=== PATIENT | female | born 1955 | race Caucasian/White ===

== ENCOUNTER → 2023-10-28 15:28 | Outpatient (REF) | payer OTHER, SELFPAY | LOC: RCS 15:28 | PROVIDERS: ATTENDING PHYSICIAN Internal Medicine Cardiovascular Disease; FAMILY PHYSICIAN Student in an Organized Health Care Education/Training Program | DX: I35.0 Nonrheumatic aortic (valve) stenosis (principal) | CPT/HCPCS: 93306 ==

== ENCOUNTER → 2023-12-10 08:41 | Outpatient (REF) | payer OTHER, SELFPAY | LOC: HWRAD 08:41 | PROVIDERS: ATTENDING PHYSICIAN Family Medicine | DX: M85.89 Other specified disorders of bone density and structure, multiple sites (principal); K76.0 Fatty (change of) liver, not elsewhere classified | CPT/HCPCS: 77080 ==

== ENCOUNTER → 2023-12-23 06:52 | Outpatient (REF) | payer OTHER, SELFPAY | LOC: HWRAD 06:52 | PROVIDERS: ATTENDING PHYSICIAN Internal Medicine Gastroenterology; FAMILY PHYSICIAN Family Medicine | DX: K76.0 Fatty (change of) liver, not elsewhere classified (principal) | CPT/HCPCS: 76700 ==

== ENCOUNTER → 2024-01-25 06:31 | Day surgery (SDC) | payer OTHER, SELFPAY | LOC: GI 06:31 | PROVIDERS: ATTENDING PHYSICIAN Internal Medicine Gastroenterology | DX: K57.30 Diverticulosis of large intestine without perforation or abscess without bleeding (principal); K64.4 Residual hemorrhoidal skin tags; K64.8 Other hemorrhoids; K29.50 Unspecified chronic gastritis without bleeding; K44.9 Diaphragmatic hernia without obstruction or gangrene; K31.7 Polyp of stomach and duodenum; K31.89 Other diseases of stomach and duodenum; Z86.010 Personal history of colon polyps; Z87.19 Personal history of other diseases of the digestive system; Z09 Encounter for follow-up examination after completed treatment for conditions other than malignant neoplasm | CPT/HCPCS: 45378; 43239; 88305; 88342 ==

== ENCOUNTER 2024-10-01 15:01 | Emergency (ER) | payer OTHER, SELFPAY ==
[2024-10-01] VITALS (11 sets, daily range): BP systolic 117–222; BP diastolic 66–95; BMI 30.9
--- NOTE | 2024-10-01 15:31 | ED.GENMED ---
History of Present Illness
General
Chief Complaint: Fall
Source: patient
Exam Limitations: none
Time Seen by Provider: 10/01/24 15:13
Nursing documentation reviewed up to this point in time: agreed with
History of Present Illness
History of Present Illness:
69-year-old female with a past medical history as noted presents to the ER for evaluation after a trip and fall. Patient was walking in the parking lot and tripped on a cement parking block. She fell forward injured her left wrist, left shoulder.
She scraped her right knee. She did have head trauma but no loss of consciousness. She mainly complains of pain in the left wrist and right shoulder. Denies any headache or neck pain. Denies any back pain. Denies any rib or abdominal pain. She
is on Coumadin.
Past History
Past History
ED Past Medical History: CAD, HTN, Valvular disease () and Other (anemia)
ED Past Surgical History: Appendectomy, Cardiac (AVR) and Gynecological (OBDULIA)
Social History
Tobacco: Non-smoker
Alcohol: None
Drug: None
Personal:
Living: with family
Employment: Employed
Family History
Family History: Other (Nonsignificant)
Review of Systems
Review of Systems
All Other Systems: ROS reviewed and negative except as documented in HPI and ROS
Respiratory: Denies trouble breathing
Cardiac: Denies chest pain
ABD/GI: Denies abdominal pain, nausea or vomiting
Musculoskeletal: Reports joint pain; Denies neck pain or back pain
Neurological: Denies dizzy or headache
Phy Exam
Physical Exam
Physical Exam:
General: Awake, alert, oriented x3; anxious appearing but nontoxic
Head: Normocephalic, atraumatic
Eyes: Conjunctiva normal, pupils equal round and reactive to light bilaterally
Throat: Airway intact, handling secretions
Neck: Trachea midline, no cervical spine tenderness
Back: No signs of trauma to the back or flank
Lungs: Breathing comfortably not in distress
Heart: Regular rate; no chest wall tenderness
Abd: Soft, non distended, nontender
Neuro: Cranial nerves grossly intact, speech fluid; motor and sensory intact radial, median, ulnar nerve distribution in the upper extremities bilaterally
Skin: Abrasion to the right
Extremities: See below--
LUE-patient has deformity to left wrist with bruising and swelling, tenderness over the distal radius/ulna; strong palpable left radial pulse; no tenderness in the left elbow and allows for range of motion of the left elbow without pain, no
tenderness in the left shoulder and allows for range of motion without pain
RUE-patient unable to move right shoulder due to severe pain; she has minor deformity with humeral head appearing to lie inferior to the glenoid; she has no tenderness of the elbow and allows for range of motion of the elbow without pain, no
tenderness of the wrist, strong right radial pulse
LLE-Atraumatic, non tender
RLE-minor abrasion to the knee but no joint effusion or swelling, no bruising, full range of motion in the, otherwise atraumatic
Scores
Heart Failure Risk
Heart Failure Risk Score: Not Applicable
Heart Score for Chest Pain Patients
STEMI patient?: Not applicable
Withdrawal Assessment of Alcohol
Withdrawal Assessment Completed?: Not applicable
Course
Orders/Labs/Results
Orders:
Orders
10/01/24 15:29
CT Head W/o Iv Contrast Urgent
Comment:
Reason For Exam: fall on coumadin
CR Shoulder - Right Min 2 View Urgent
Comment:
Reason For Exam: right shoulder injury
CR Wrist - Left Min 3 Views Urgent
Comment:
Reason For Exam: left wrist injury
10/01/24 15:30
CT Cervical Spine W/o Iv Contr Urgent
Comment:
Reason For Exam: fall on coumadin
Morphine Sulfate 4 mg IV NOW STA
Ondansetron Injectable [Zofran] 4 mg IV NOW STA
10/01/24 16:27
Complete Blood Count/With Diff Urgent
Comprehensive Metabolic Panel Urgent
PTT Urgent
Prothrombin Time Urgent
10/01/24 18:37
Propofol [Diprivan] 20 ml .ROUTE .STK-MED
10/01/24 18:42
Propofol [Diprivan] 20 ml .ROUTE .STK-MED
10/01/24 18:54
Wrist, Left 3 Views CR [CR Wrist - Left Min 3 Views] Urgent
Comment:
Reason For Exam: post reduction
Abnormal Lab Results
10/01/24
16:27
WBC 11.9 H 10^3/uL
(4.8-10.8)
Abs Immat Gran (auto) 0.1 H 10^3/uL
(0-0.05)
Absolute Neuts (auto) 10.1 H 10^3/uL
(1.4-6.5)
Absolute Lymphs (auto) 0.9 L 10^3/uL
(1.2-3.4)
Absolute Monos (auto) 0.7 H 10^3/uL
(0.1-0.6)
Neutrophils % 84.7 H %
(42.2-75.2)
Lymphocytes % 7.2 L %
(20.5-51.1)
PT 24.3 H Sec
(11.4-14.6)
APTT 37.9 H Sec
(23.4-35.0)
Creatinine 1.1 H mg/dL
(0.6-1.0)
Glucose 118 H mg/dl
(70-99)
10/01/24 16:27
10/01/24 16:27
Vital Signs
Initial and Last Documented VS:
Initial Vital Signs
Temp Pulse Resp BP Pulse Ox
36.4 C 98 16 222/95 98
10/01/24 15:04 10/01/24 15:04 10/01/24 15:04 10/01/24 15:04 10/01/24 15:04
Last Documented Vital Signs
Temp Pulse Resp BP Pulse Ox
36.4 C 95 16 131/68 96
10/01/24 19:37 10/01/24 19:37 10/01/24 19:37 10/01/24 19:37 10/01/24 19:37
Procedures
Moderate Sedation
ASA Risk Score: Class III
Chart and allergies reviewed: Yes
Consent for anesthesia obtained: Yes
Time out completed (validating right patient & procedure): Yes
Moderate Sedation Start Time(when first medication is given): 18:45
History of difficult intubation: No
Airway free of obstruction: Yes
Patient has a gag reflex: Yes
Patient is able to open mouth: Yes
Patient has no dentures: Yes
Patient has no loose teeth: Yes
Medication administered by Provider during Moderate Sedation: IV Propofol (mg)
Total dose administered: 50
Time drug administered: 18:45
Moderate Sedation Procedure End Time: 19:00
Splinting/Sling Placement
Left Arm:
Procedure completed by: Rick Mckay MD
Pre-splint extermity exam: neurovascular intact
Type of splint: sugar-tong
Splint material: fiberglass
Type of sling: sling fitted
Normal distal neurovascular exam?: Yes
Right Arm:
Procedure completed by: Rick Mckay MD
Pre-splint extermity exam: neurovascular intact
Type of splint: other (arm sling)
Type of sling: sling fitted
Normal distal neurovascular exam?: Yes
Joint/Fracture Reduction
Left Wrist:
Indication for procedure:: distal radius fracture
Procedure completed by: Rick Mckay MD
Consent form signed: Yes
Anesthesia/sedation: Moderate sedation
Injury was: closed
Further treatement: no treatment needed
Post reduction exam: stable
Capillary Refill: normal
Normal distal neurovascular exam?: Yes
Peripheral Pulses: radial (left): 2+
MDM/Problems Addressed
Differential Diagnosis Includes:
Shoulder injury: Dislocation, fracture, contusion
Wrist injury: Fracture, contusion, sprain
MDM/Problems Addressed:
69-year-old female on Coumadin presents after a fall. Injured her left wrist and shoulder. There was a head strike but no LOC. Check x-ray of the left wrist and right shoulder. Check CT of the head and cervical spine. Check labs and INR. Treat
pain. Reassess after the above.
Labs reviewed and no clinically significant abnormalities. INR therapeutic. X-ray of the wrist shows comminuted and dorsally angulated distal radius fracture as well as a distal ulnar fracture. X-ray of the shoulder shows essentially nondisplaced
proximal humerus fracture. CT head and cervical spine negative for any acute posttraumatic pathology. Will plan to reduce and splint her wrist fracture. Will place in a sling for right shoulder. I had a long discussion with this patient�this is
a very unfortunate injury pattern that would require essentially bilateral arm slings and make it very difficult to use either arm. I explained that admission and rehab placement would be a prudent course of action so that she can have assistance
in her daily activities. Patient and however feel that she can manage at home with her degree of support. She wishes to at least try going home with support from her family and will return if she feels she cannot manage. Discussed with
orthopedics they can follow-up with her in the office.
Fracture reduced under moderate sedation as documented in procedure note. Reasonable alignment on postreduction x-ray. Placed in a splint by me and placed in bilateral slings. Will monitor after sedation, patient still wishes to go home as above.
Chronic conditions affecting care:
Heart disease on Coumadin impacts fall/trauma
Acute Exacerbation and/or Progression of Chronic Illness:
Acutely hypertensive likely pain related�treat pain
Acute Exacerbation and/or Progression of Chronic Illness: HTN
*Radiology
Radiology exam reviewed: preliminary read by ED provider and radiology read reviewed
*Pulse Oximetry
Patient hypoxic: no
*Critical Care Note
Total Time (30-74mins, 75-104mins- exclusive of procedures): Not Applicable
Data Reviewed
Review of Other/Old Records Reveals: Labs and Records
Source: patient and family
Patient Management
Social determinants of health affecting care: Strong social support
Discussion with other providers: [employer] (Discussed with orthopedist)
Escalation/DeEscalation of care consider admission/obs:
Recommended admission and rehab placement but patient wishes to go home with family support
ED Attending Note
-
Portions of this chart may have been created with voice recognition software.� Occasional wrong word or��sound alike� substitutions may have occurred due to the inherent limitations of voice recognition software.
Discharge Plan
Departure
Patient Disposition: Home (Routine Discharge)
Date of Disposition: 10/01/24
Time of Disposition: 19:17
Patient with high blood pressure during this ER visit?: Yes
Discharge Problem:
Fracture, humerus, Fracture, radius, Hypertension
Instructions: Wrist fracture, Shoulder or upper arm fracture, BLOOD PRESSURE
Prescriptions:
New
oxycodone 5 mg tablet
5 mg PO TID PRN (Reason: Pain) Qty: 20 0RF
No Action
aspirin 81 MG tablet,delayed release (DR/EC)
81 mg PO QPM
pantoprazole 40 MG tablet,delayed release (DR/EC)
40 mg PO DAILY Qty: 30 11RF
atorvastatin 40 MG tablet
20 mg PO DAILY
warfarin [Jantoven] 2.5 MG tablet
2.5 mg PO QPM Qty: 90 3RF
Rx Instructions:
Take nothing day of discharge 04/04, Then one tablet (2.5mg) daily or as directed for a target INT of 2.5-3.5
losartan 50 MG tablet
50 mg PO DAILY
verapamil 240 MG tablet extended release
240 mg PO DAILY
polyethylene glycol 3350 17 GRAMS powder in packet
17 grams PO DAILY 7 Days Qty: 7 0RF
sennosides-docusate sodium 1 TABLET tablet
1 tab PO BIDPRN PRN (Reason: constipation) 7 Days Qty: 14 0RF
metronidazole 500 MG tablet
500 mg PO TID 5 Days Qty: 15 0RF
levofloxacin 500 MG tablet
500 mg PO Q24H 5 Days Qty: 5 0RF
Referrals:
James Zavala MD [Active] - Call in 1-3 days for appt (Orthopedist)
Elke May MD [Family Provider] -
Activity Restrictions/Additional Instructions:
Thank you for visiting the Emergency Department at [facility].
1. Please schedule a follow up appointment as directed. Call first thing tomorrow morning to make an appointment.
2. If indicated, please take your medications as instructed and indicated on discharge paperwork.
3. If any of your symptoms do not improve, or persist, or become more severe within 6-12 hours, please return to the emergency department for further care.
4. Please return to the emergency department if you develop a headache, neck pain/stiffness, fever greater than 100.4F, chest pain, shortness of breath, persistent nausea, vomiting, slurred speech, difficulty walking, numbness/tingling, weakness,
signs of infection or any other symptoms that are worrisome to you.
Please call [phone] if you have any questions.
Interventions
Interventions:
*Risk Screen - Suicide Last Done: 10/01/24 15:04
*General Assessment Last Done: 10/01/24 16:20
*Neglect/Abuse Screening Last Done: 10/01/24 15:04
*ED- Fall Risk Assessment Last Done: 10/01/24 16:20
*ED COVID-19 Vaccine History Last Done: 10/01/24 16:20
*Nursing Disposition Last Done: 10/01/24 19:37
Discharge Date and Time
Print Language: COMORAN
[2024-10-01] MEDS: ZOFRAN 4 MG IV (16:28)
[2024-10-01] MEDS: MORPHINE SULFATE 4 MG IV (16:28)
[2024-10-01 16:45] LABS: % Basophils 0.6 % (0-2); % Eosinophils 1.4 % (0-6); % Immature Granulocytes 0.5 % (0-0.5); % Lymphocytes 7.2 % (20.5-51.1); % Monocytes 5.6 % (1.7-9.3); % Neutrophils 84.7 % (42.2-75.2); Absolute Basophils 0.1 10^3/uL (0-0.2); Absolute Eosinophils 0.2 10^3/uL (0-0.7); Absolute Immature Granulocytes 0.1 10^3/uL (0-0.05); Absolute Lymphocytes 0.9 10^3/uL (1.2-3.4); Absolute Monocytes 0.7 10^3/uL (0.1-0.6); Absolute Neutrophils 10.1 10^3/uL (1.4-6.5); Hematocrit 41.3 % (37.0-47.0); Hemoglobin 13.9 g/dL (12.0-16.0); Mean Corp Hgb Conc. 33.7 g/dL (33.0-37.0); Nucleated Red Blood Cells % 0 %; Platelet Count 303 10^3/uL (130-400); Red Cell Dist. Width 13.3 % (11.5-14.5); White Blood Cell Count 11.9 10^3/uL (4.8-10.8)
[2024-10-01 16:55] LABS: INR 2.18; PT 24.3 Sec (11.4-14.6)
[2024-10-01 16:56] LABS: APTT 37.9 Sec (23.4-35.0)
[2024-10-01 16:57] LABS: ALT (SGPT) 23 U/L (0-35); AST (SGOT) 27 U/L (14-36); Albumin 3.9 g/dl (3.5-5.0); Alkaline Phosphatase 105 U/L (38-126); Blood Urea Nitrogen 16 mg/dl (7-17); Calcium 9.7 mg/dl (8.4-10.2); Carbon Dioxide 29 mmol/L (22-30); Chloride 107 mmol/L (98-107); Glucose 118 mg/dl (70-99); Potassium 3.7 mmol/L (3.5-5.1); Sodium 143 mmol/L (135-145); Total Bilirubin 0.5 mg/dl (0.2-1.3); Total Protein 6.8 g/dl (6.3-8.2); eGFR 55.07
== END 2024-10-01 19:45 | disposition home or self-care (01) ==
LOC: EMR 15:01
PROVIDERS: EMERGENCY PHYSICIAN Emergency Medicine; FAMILY PHYSICIAN Family Medicine
DX: S52.591A Other fractures of lower end of right radius, initial encounter for closed fracture (principal); S52.92XA Unspecified fracture of left forearm, initial encounter for closed fracture; W01.10XA Fall on same level from slipping, tripping and stumbling with subsequent striking against unspecified object, initial encounter; Y92.481 Parking lot as the place of occurrence of the external cause; Y93.01 Activity, walking, marching and hiking; I25.10 Atherosclerotic heart disease of native coronary artery without angina pectoris; I10 Essential (primary) hypertension; I38 Endocarditis, valve unspecified; D64.9 Anemia, unspecified; Z79.01 Long term (current) use of anticoagulants; Z90.49 Acquired absence of other specified parts of digestive tract; Z90.710 Acquired absence of both cervix and uterus
CPT/HCPCS: 99284; 25605; 96374; 96375; 70450; 72125; 73030; 73110; 80053; 85025; 85610; 85730

== ENCOUNTER 2024-10-04 06:17 | Day surgery (SDC) | payer OTHER, SELFPAY ==
[2024-10-04] VITALS (14 sets, daily range): BP systolic 118–232; BP diastolic 55–101; BMI 30.4
[2024-10-04 12:05] LABS: Hemoglobin 12.7 g/dL (12.0-16.0)
[2024-10-04] MEDS: NORMOSOL-R/PLASMALYTE-A 1000 IV (12:08)
[2024-10-04] MEDS: CELEBREX 200 MG PO (12:09)
[2024-10-04] MEDS: ROXICODONE 5 MG PO (12:09)
[2024-10-04 12:12] LABS: INR 2.79; PT 29.4 Sec (11.4-14.6)
[2024-10-04 12:14] LABS: Blood Urea Nitrogen 10 mg/dl (7-17); Glucose 92 mg/dl (70-99)
[2024-10-04] MEDS: DILAUDID 0.5 MG IV (14:22)
[2024-10-04] MEDS: ZOFRAN 4 MG IV (14:22)
== END 2024-10-04 16:42 | disposition home or self-care (01) ==
LOC: SDS 06:17
PROVIDERS: Student in an Organized Health Care Education/Training Program; ATTENDING PHYSICIAN Orthopaedic Surgery Hand Surgery
DX: S52.572A Other intraarticular fracture of lower end of left radius, initial encounter for closed fracture (principal); S42.201A Unspecified fracture of upper end of right humerus, initial encounter for closed fracture; X58.XXXA Exposure to other specified factors, initial encounter; Z95.2 Presence of prosthetic heart valve; Z79.01 Long term (current) use of anticoagulants
CPT/HCPCS: 25609; 24505; 82947; 84520; 85018; 85610; 93005; C1713

== ENCOUNTER → 2024-10-28 09:28 | Outpatient (REF) | payer OTHER, SELFPAY ==
[2024-10-28 10:52] LABS: INR 2.16; PT 24.2 Sec (11.4-14.6)
== END ==
LOC: REG 09:28
PROVIDERS: ATTENDING PHYSICIAN Student in an Organized Health Care Education/Training Program
DX: Z95.2 Presence of prosthetic heart valve (principal)
CPT/HCPCS: 36415; 85610

== ENCOUNTER → 2024-11-16 09:52 | Outpatient (REF) | payer OTHER, SELFPAY ==
[2024-11-16 11:09] LABS: INR 1.68; PT 20.3 Sec (11.4-14.6)
== END ==
LOC: REG 09:52
PROVIDERS: ATTENDING PHYSICIAN Internal Medicine Cardiovascular Disease; FAMILY PHYSICIAN Family Medicine
DX: Z95.2 Presence of prosthetic heart valve (principal)
CPT/HCPCS: 36415; 85610

== ENCOUNTER 2025-01-08 18:07 | Emergency (ER) | payer OTHER, SELFPAY ==
[2025-01-08 18:12] VITALS: BP 150/103
[2025-01-08 18:30] LABS: Hematocrit 43.7 % (37.0-47.0); Hemoglobin 15.0 g/dL (12.0-16.0); Mean Corp Hgb Conc. 34.3 g/dL (33.0-37.0); Mean Corpuscular Volume 83.2 fL (81.0-99.0); Nucleated Red Blood Cells % 0 %; Platelet Count 262 10^3/uL (130-400); Red Cell Dist. Width 13.2 % (11.5-14.5)
[2025-01-08 18:53] LABS: ALT (SGPT) 29 U/L (0-35); AST (SGOT) 28 U/L (14-36); Albumin 4.3 g/dl (3.5-5.0); Alkaline Phosphatase 102 U/L (38-126); Blood Urea Nitrogen 8 mg/dl (7-17); Calcium 9.9 mg/dl (8.4-10.2); Carbon Dioxide 28 mmol/L (22-30); Chloride 106 mmol/L (98-107); Glucose 103 mg/dl (70-99); Potassium 3.2 mmol/L (3.5-5.1); Sodium 139 mmol/L (135-145); Total Protein 7.1 g/dl (6.3-8.2); eGFR > 60.00
[2025-01-08 19:25] VITALS: BMI 29.1
[2025-01-08 19:30] VITALS: BP 204/62
[2025-01-08 20:00] VITALS: BP 172/47
--- NOTE | 2025-01-08 20:04 | ED.GENMED ---
History of Present Illness
General
Chief Complaint: Blood Pressure Problem
Time Seen by Provider: 01/08/25 20:01
History of Present Illness
History of Present Illness:
TIME OF INITIAL EVALUATION
- 8:10 PM
REVIEW OF OLD RECORDS
- The patient has history of migraines, former smoker, aortic stenosis, coronary artery disease, and high blood. I reviewed records, the patient went to the OR for management of distal left radius fracture.
Note:
CHIEF COMPLAINT(S)
Elevated blood pressure readings with associated abdominal discomfort.
HISTORY OF PRESENT ILLNESS
The patient is a 69-year-old female presenting with concerns about fluctuating blood pressure readings. Her blood pressure this morning was recorded at 144/55 mmHg, with a peak of 208/74 mmHg around 5 PM. The patient is currently on Verapamil 240 mg
extended release taken in the evening and Losartan 50 mg taken each morning for hypertension management. She reports no associated chest pain or shortness of breath but describes some stomach discomfort. The patient mentions that recent blood work
did not indicate any alarming findings and that an electrocardiogram (EKG) conducted previously prompted a recommendation to return for follow-up. The patients elevated blood pressure readings vary considerably, described as labile hypertension.
The patient initially experienced issues related to a hand procedure necessitated by a severe wrist fracture, for which metal was implanted. The patient was informed by her surgeon that she may be allergic to the metal, impacting healing and
function. She was unable to bend her hand since September and finds this situation stressful, potentially exacerbating her blood pressure issues.
PHYSICAL EXAM
General: Alert, no acute distress. Patient is found to be hypertensive
Skin: Warm, dry.
Head: Normocephalic, atraumatic.
Neck: Supple, trachea midline.
Eye, Ears, Nose, Mouth and Throat: Oral mucosa moist.
Cardiovascular: Normal peripheral perfusion, no edema. Click heard on exam consistent with known mechanical aortic valve
Respiratory: Respirations are non-labored.
Gastrointestinal: Abdomen nondistended.
Back: Normal range of motion, normal alignment.
Musculoskeletal: Normal range of motion, normal strength.
Neurological: Alert and oriented to person, place, time, and situation, no focal neurological deficit observed.
Psychiatric: Cooperative, appropriate mood & affect.
PROBLEM LIST
Acute:
- Elevated and labile hypertension
- Abdominal discomfort
- Incomplete healing post wrist fracture
PLAN
1. Adjust hypertension management by increasing Losartan to 100 mg daily, taken as two 50 mg doses each morning.
2. Continue Verapamil 240 mg extended release in the evening.
3. Follow-up with cardiology for potential heart condition evaluation and consideration of imaging such as an echocardiogram due to suspicion of left ventricular hypertrophy.
4. Consideration of wrist metal allergy and implications for healing; remove metal if inhibiting recovery based on orthopedic evaluation.
5. Encourage continued follow-up with the loin puller and orthopedic surgeon to monitor blood pressure and healing progress.
DIFFERENTIAL DIAGNOSIS
The Differential Diagnosis includes, in no particular order and is not limited to:
- Essential hypertension
- Labile hypertension
- Medication-related hypertension
- Anxiety-induced hypertension
- Abdominal discomfort due to gastrointestinal causes
- Gastric ulcer
- Left ventricular hypertrophy
- Allergic reaction to implanted metal
- Incomplete fracture union
- Stress-related physiological responses
RADIOLOGY
- Not indicated
EKG
- Sinus 84, leftward axis deviation, LVH with associated ST abnormality
LABS
- CBC unremarkable, chemistries show potassium of 3.2
UPDATE
-SUMMARY OF ENCOUNTER
The patient, a 69-year-old female, was seen in the emergency department due to concerns of fluctuating blood pressure readings, with a significant rise to 208/74 mmHg. She experiences associated mild abdominal discomfort but denies chest pain or
shortness of breath. She currently takes Verapamil 240 mg extended release in the evening and Losartan 50 mg in the morning for her hypertension. Management in the emergency department included a plan to adjust her hypertension medication by
increasing Losartan to 100 mg daily, taken as two 50 mg doses each morning. Additionally, she will follow up with cardiology due to suspected left ventricular hypertrophy. Incidentally, her potassium level was noted to be low, prompting a decision
to administer an oral potassium replacement as a one-time dose.
DISPOSITION
Discharge
PLAN
Increase Losartan dosage to 100 mg daily, to be taken as two 50 mg doses each morning. Administer a one-time oral potassium replacement due to low potassium levels. Encourage the patient to follow up with cardiology for ongoing evaluation of her
heart condition.
INDEPENDENT REVIEW OF LABS AND INTERPRETATION OF TESTS
My independent review indicates low potassium levels, leading to the decision to administer oral potassium replacement.
MEDICATION RECONCILIATION
Losartan, adjusted to 100 mg daily taken as two 50 mg doses each morning.
Verapamil 240 mg extended release, to continue in the evening.
One-time oral potassium replacement administered in the emergency department.
MEDICAL DECISION MAKING
Chronic conditions affecting care: Elevated and labile hypertension, abdominal discomfort, incomplete healing post wrist fracture.
DDx: Essential hypertension, labile hypertension, medication-related hypertension, anxiety-induced hypertension, abdominal discomfort due to gastrointestinal causes, gastric ulcer, left ventricular hypertrophy, allergic reaction to implanted metal,
incomplete fracture union, stress-related physiological responses.
-Data:
Category 1
Reviewed blood pressure medication regimen; EKG indicating follow-up recommendation.
Category 3
Adjustment in management discussed with the patient regarding changes in Losartan dosing and follow-up with cardiology.
DIAGNOSIS
Labile Hypertension - ICD-10: I10
Hypokalemia - ICD-10: E87.6
Past History
Past History
ED Past Medical History: CAD, HTN, Valvular disease () and Other (anemia)
ED Past Surgical History: Appendectomy, Cardiac (AVR) and Gynecological (OBDULIA)
Social History
Tobacco: Non-smoker
Alcohol: None
Drug: None
Personal:
Living: with family
Employment: Employed
Family History
Family History: Other (Nonsignificant)
Phy Exam
Physical Exam
Physical Exam:
See HPI
Course
Orders/Labs/Results
Orders:
Orders
01/08/25 18:18
Complete Blood Count/With Diff Urgent
Comprehensive Metabolic Panel Urgent
01/08/25 19:31
EKG [Electrocardiogram (*1)] Urgent
Reason for Study: Hypertension, Benign
EKG- Treatment ONCE
01/08/25 20:29
Potassium Chloride Powder [Klor-Con] 40 meq PO NOW STA
Abnormal Lab Results
01/08/25
18:18
Absolute Neuts (auto) 6.6 H 10^3/uL
(1.4-6.5)
Absolute Monos (auto) 0.8 H 10^3/uL
(0.1-0.6)
Lymphocytes % 17.5 L %
(20.5-51.1)
Potassium 3.2 L mmol/L
(3.5-5.1)
Glucose 103 H mg/dl
(70-99)
01/08/25 18:18
01/08/25 18:18
Vital Signs
Initial and Last Documented VS:
Initial Vital Signs
Temp Pulse Resp BP Pulse Ox
36.6 C 97 16 150/103 97
01/08/25 18:12 01/08/25 18:12 01/08/25 18:12 01/08/25 18:12 01/08/25 18:12
Last Documented Vital Signs
Temp Pulse Resp BP Pulse Ox
36.6 C 79 21 172/47 91
01/08/25 18:12 01/08/25 20:00 01/08/25 20:00 01/08/25 20:00 01/08/25 20:05
*Pulse Oximetry
SaO2: 91
Oxygen Mode of Delivery: Room air
Patient hypoxic: no
*Critical Care Note
Total Time (30-74mins, 75-104mins- exclusive of procedures): Not Applicable
ED Attending Note
-
Portions of this chart may have been created with voice recognition software.� Occasional wrong word or��sound alike� substitutions may have occurred due to the inherent limitations of voice recognition software.
Discharge Plan
Departure
Patient Disposition: Home (Routine Discharge)
Date of Disposition: 01/08/25
Time of Disposition: 20:28
Patient with high blood pressure during this ER visit?: Yes
Discharge Problem:
Poor high blood pressure control
Instructions: High Blood Pressure (DC), BLOOD PRESSURE
Prescriptions:
No Action
aspirin 81 MG tablet,delayed release (DR/EC)
81 mg PO QPM
atorvastatin 40 MG tablet
20 mg PO DAILY
losartan 50 MG tablet
50 mg PO DAILY
verapamil 120 mg Tablet Extended Release
120 mg PO BID
warfarin 2.5 mg Tablet
3.75 mg PO MO
omeprazole 40 mg Capsule,Delayed Release(Dr/Ec)
40 mg PO DAILY
acetaminophen 500 mg Tablet
1,000 mg PO Q6H PRN (Reason: pain)
cholecalciferol (vitamin D3) [Vitamin D3] 50 mcg (2,000 unit) Capsule
50 mcg PO DAILY
Iron (ferrous sulfate) 28 mg
1 tab PO DAILY
warfarin [Jantoven] 2.5 MG tablet
2.5 mg PO SUTUWETHFRSA
Rx Instructions:
Take nothing day of discharge 04/04, Then one tablet (2.5mg) daily or as directed for a target INT of 2.5-3.5
Referrals:
Elke May MD [Family Provider, Family Practice]
Activity Restrictions/Additional Instructions:
Since your blood pressure has remained elevated despite doubling the verapamil, I recommend you also double the losartan 50 mg now to 2 pills at the same time each morning. Follow-up with your loin puller. Basic blood work is unremarkable with
exception of slightly low potassium. We gave you a dose of potassium tonight. Consider increasing potassium intake by taking foods high in potassium such as bananas or potatoes.
Interventions
Interventions:
*Risk Screen - Suicide Last Done: 01/08/25 18:14
*General Assessment Last Done: 01/08/25 19:25
*Neglect/Abuse Screening Last Done: 01/08/25 18:14
*ED- Fall Risk Assessment Last Done: 01/08/25 19:25
*ED COVID-19 Vaccine History Last Done: 01/08/25 19:25
ED- Cardiac Assessment Last Done: 01/08/25 19:25
ED- Neurological Assessment Last Done: 01/08/25 19:25
ED- Pulmonary Assessment Last Done: 01/08/25 19:25
Discharge Date and Time
Print Language: HUNGARIAN
[2025-01-08] MEDS: KLOR-CON 40 MEQ PO (20:38)
== END 2025-01-08 20:48 | disposition home or self-care (01) ==
LOC: EMR 18:07
PROVIDERS: EMERGENCY PHYSICIAN Emergency Medicine; FAMILY PHYSICIAN Family Medicine
DX: I10 Essential (primary) hypertension (principal); E87.6 Hypokalemia; I25.10 Atherosclerotic heart disease of native coronary artery without angina pectoris; I35.0 Nonrheumatic aortic (valve) stenosis; Z79.899 Other long term (current) drug therapy; Z90.49 Acquired absence of other specified parts of digestive tract; Z90.710 Acquired absence of both cervix and uterus
CPT/HCPCS: 99283; 80053; 85025; 93005

== ENCOUNTER → 2025-01-23 15:03 | Outpatient (REF) | payer OTHER, SELFPAY ==
[2025-01-23 15:37] LABS: INR 4.56; PT 43.2 Sec (11.4-14.6)
== END ==
LOC: REG 15:03
PROVIDERS: ATTENDING PHYSICIAN Student in an Organized Health Care Education/Training Program; FAMILY PHYSICIAN Family Medicine
DX: Z95.2 Presence of prosthetic heart valve (principal)
CPT/HCPCS: 36415; 85610

== ENCOUNTER → 2025-01-27 11:04 | Outpatient (REF) | payer OTHER, SELFPAY ==
[2025-01-27 13:01] LABS: INR 3.93; PT 38.1 Sec (11.4-14.6)
== END ==
LOC: REG 11:04
PROVIDERS: ATTENDING PHYSICIAN Student in an Organized Health Care Education/Training Program; FAMILY PHYSICIAN Family Medicine
DX: Z95.2 Presence of prosthetic heart valve (principal)
CPT/HCPCS: 36415; 85610

== ENCOUNTER → 2025-02-24 10:25 | Outpatient (REF) | payer OTHER, SELFPAY ==
[2025-02-24 11:04] LABS: INR 3.44; PT 34.4 Sec (11.4-14.6)
== END ==
LOC: REG 10:25
PROVIDERS: ATTENDING PHYSICIAN Student in an Organized Health Care Education/Training Program; FAMILY PHYSICIAN Family Medicine
DX: Z95.2 Presence of prosthetic heart valve (principal)
CPT/HCPCS: 36415; 85610

== ENCOUNTER → 2025-03-07 11:30 | Outpatient (REF) | payer OTHER, SELFPAY ==
[2025-03-07 12:50] LABS: INR 3.08; PT 31.7 Sec (11.4-14.6)
== END ==
LOC: REG 11:30
PROVIDERS: ATTENDING PHYSICIAN Student in an Organized Health Care Education/Training Program; FAMILY PHYSICIAN Family Medicine
DX: Z95.2 Presence of prosthetic heart valve (principal)
CPT/HCPCS: 36415; 85610